=== PATIENT | female | born 1955 | race Caucasian/White ===

== ENCOUNTER 2025-05-11 13:29 | Outpatient (AMB) | payer OTHER, SELFPAY ==
--- NOTE | 2025-05-11 13:30 | A.OFFVIS_ITS ---
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 Accompanied by: Self / Same As Patient Allergies erythromycin Allergy (Unknown, Uncoded 05/11/25 11:25) Rash Medication List - Last Reconciled 05/11/25 by Tamika Rashid MD albuterol sulfate 2.5 mg inhalation Q6H albuterol sulfate 90 mcg/actuation (Ventolin HFA) 2 puffs inhalation QID alprazolam 0.25 mg PO BEDTIME PRN ammonium lactate 12% 1 appl topical DAILY budesonide-formoterol 160-4.5 mcg/actuation (Symbicort) 2 puffs inhalation BID bupropion HCl XL (Wellbutrin XL) 150 mg PO QAM ciclopirox 1% 10 mL topical 2XW escitalopram oxalate (Lexapro) 20 mg PO DAILY fluticasone propionate 50 mcg/actuation 1 spray intranasal BID magnesium aspart,citrate,oxide (Triple Magnesium Complex) mg PO metoprolol succinate ER (Toprol XL) 25 mg PO DAILY montelukast (Singulair) 10 mg PO BEDTIME multivitamin 1 tab PO DAILY naproxen (Naprosyn) 500 mg PO BID omega-3 fatty acids 1,000 mg PO DAILY rosuvastatin (Crestor) 10 mg PO DAILY sumatriptan succinate take 1 tab at onset of headache; if no relief may repeat 1 tab after at least 2 hrs; max = 4 tabs/24 hr PO turmeric mg PO HPI Comments Details: 69y/o left handed female comes for evaluation of tremors. She reports left hand tremors for past 1 year, mostly with action.she compensates with using her right hand . she has trouble eating sometimes . she denies change in voice . No drooling No difficulty dressing or bath. she has mild balance issues .Memory- mild word recall issues Mood- mild anxious Bowel movements are regular Bladder- mild increase in frequency she denies nay family h/o tremors or parkinsons Denies any exposure to neuroleptics she also reports intermittent numbness in her left UE starting form neck. PT helped. she has h/o migraine - was seen by Dr. Avila , Dr. Galvez. [facility] Medical History (Updated 05/11/25 @ 14:21 by Tamika Rashid MD) Numbness Hypersomnia Snoring Cervicalgia Coarse tremors Stress incontinence Primary osteoarthritis of left knee Polycythemia Paroxysmal supraventricular tachycardia Mild intermittent asthma in adult without complication Lichen sclerosus Left hip pain Acute lateral meniscus tear of left knee Chronic rhinitis Screening for endocrine, metabolic and immunity disorder Antibody response examination Elevated hematocrit DDD (degenerative disc disease), cervical Tremor of left hand Prediabetes Mixed hyperlipidemia Anxiety and depression Social History Patient Tobacco Use Status: Never used Tobacco Physical Exam Vital Signs: Last Vital Signs Pulse 69 05/11/25 13:33 BP 132/76 05/11/25 13:33 Pulse Ox 96 05/11/25 13:33 Oxygen Delivery Method Room Air 05/11/25 13:33 BMI result Body Mass Index 34.8 Const General: cooperative, healthy appearing, comfortable and no acute distress Nutritional Appearance: obese Orientation/consciousness: patient oriented x3 Eyes Pupils: Equal, round and reactive pupils present Neuro Other: Mild neck stiffness Left hand mild action tremors - intremittent No cogwheel rigidity FFM and foot taps normal No bradykinesias No cog wheel rigidity Gait - normal stride , normal arm swings General: patient oriented x3, gait normal, tone normal, moves all extremities and no focal motor deficits Cranial nerves: Yes Facial sensation intact/muscles of mastication intact, Yes Equal, round and reactive pupils present, Yes Bilaterally intact EOM present, Y es Nystagmus not present, Yes Normal facial strength present, Yes Midline tongue present and Yes Symmetric palate elevation present Cognition (Neuro): normal cognition Gait exam (Neuro): Normal gait present Motor exam (neuro): 5/5 motor strength present throughout and Normal motor muscle tone present throughout Deep tendon reflexes (DTR's): Right triceps reflex intensity grade: 2+, Left triceps reflex intensity grade: 2+, Rt Biceps (C5, C6): 2+, Left biceps reflex intensity grade: 2+, Right brachioradialis reflex intensity grade: 2+, Left brachioradialis reflex intensity grade: 2+, Right patellar reflex intensity grade: 2+ and Left patellar reflex intensity grade: 2+ Coordination: [id number] test normal Assessment & Plan Assessment & Plan (1) Coarse tremors: Comment: jeremy related to her cervical radiculopathy Code(s): G25.2 - Other specified forms of tremor Category: Medical (2) Cervicalgia: Code(s): M54.2 - Cervicalgia Category: Medical (3) Snoring: Code(s): R06.83 - Snoring Category: Medical (4) Hypersomnia: Code(s): G47.10 - Hypersomnia, unspecified Category: Medical (5) Numbness: Comment: left hand Code(s): R20.0 - Anesthesia of skin Category: Medical Plan No evidence of Parkinsons disease on todays eval Sleep study to r/o sleep apnea EMG Left UE for CTS ? Cervical radiculopathy Orders: Orders NE nerve conduction velocity Today R20.0 - Anesthesia of skin NE electromyogram (EMG) Today R20.0 - Anesthesia of skin RT home sleep study Today G47.10 - Hypersomnia, unspecified, R06.83 - Snoring Coding Level of Care Code New Pt Level 4 (62613) Diagnoses Coarse tremors G25.2 Cervicalgia M54.2 Snoring R06.83 Hypersomnia G47.10 Numbness R20.0
[2025-05-11 13:33] VITALS: BP 132/76; PULSE 69; O2SAT 96; BMI 34.8
--- OUTSIDE RECORDS SUMMARY | 2025-05-11 14:20 | XMS_ITS ---
Author Name [facility] Organization Unknown Care Team Organization Name Specialty Phone Email Start Date End Da te [facility] Meera Olivo Primary Care 09/05/202304/24 [facility] Obed Xiong Primary Care 05/31/202305/12 [facility] Izabela Mariscal Primary Care 08/01/2022 05/12/2024
--- OUTSIDE RECORDS SUMMARY | 2025-05-11 14:20 | XMS_ITS | Clinical Summary ---
Author Organization [facility] Address [address] [place] [address] Care Team Providers Care Pan Pusher Name Role Phone Unavailable Primary Care Provider Unavailabl e Allergies Active Allergy Reactions Criticality Noted Date Comments Erythromycin Hives 10/06/2022 Medications Albuterol Sulfate, sensor, (ProAir Digihaler) 108 (90 Base) MCG/ACT aerosol powder Inhale 2 puffs every 4 (four) hours. Active ALPRAZolam 1 MG/ML concentration Take by mouth. A ctive calcium carbonate (Os-Homero) 1250 (500 Ca) MG tablet Active escitalopram (Lexapro) 10 MG tablet Take 1 tablet by mouth at bed time. Active magnesium gluconate 550 MG tablet Active Multiple Vitamins-Minerals (Multivitamin) liquid Active naproxen (Naprosyn) 125 MG/5ML suspension Take by mouth. Active SUMAtriptan (Imitrex) 5 MG/ACT nasal spray Administer into affected nostril(s). Active Turmeric 400 MG capsule Active Ventolin HFA 108 (90 Base) MCG/ACT inhaler INHALE 2 PUFFS BY MOUTH EVERY 4 HOURS NEEDED FOR WHEEZING OR SHORTNESS OF BREATH FOR 30 DAYS 3 Active ALPRAZolam (Xanax) 0.25 MG tablet Take 0.25 mg by mouth if needed each day. 3 Active budesonide-formot fausto (Symbicort) 160-4.5 MCG/ACT inhaler 4 Active fluticasone (Flonase) 50 MCG/ACT nasal spray INHALE 2 SPRAYS BY NASAL ROUTE DAILY FOR 30 DAYS 3 Active metoprolol succinate XL (Toprol-XL) 25 MG 24 hr tablet Take 25 mg by mouth in the morning. 3 Active montelukast (Singulair) 10 MG tablet Take 10 mg by mouth at bedtime. 3 Active buPROPion XL (Wellbutrin XL) 150 MG 24 hr tablet Take 150 mg by mouth in the morning. 4 Active rosuvastatin (Crestor) 10 MG tablet Take 10 mg by mouth Once per day. 5 Active Social History Tobacco Use Types Packs/Day Years Used Date Smoking Tobacco: Never Passive Smoke Exposure: Never Smokeless Tobacco: Never Tobacco Cessation:Counseling Given: Not Answered Alcohol Use Standard Drinks/Week Comments Yes 5 (1 standard drink = 0.6 oz pur e alcohol) Comments Unknown Sex and Gender Information Value Date Recorded Sex Assigned at Female 07/24/2022 10:37 AM EDT Legal Sex Female 10:37 AM EDT Gender Identity Female 07/24/2022 10:37 AM EDT Sexual Orientation Straight 07/24/2022 10 :37 AM EDT Last Filed Vital Signs Vital Sign Reading Time Taken Comments Blood Pressure 108/62 10/27/2024 2:05 PM EST Pulse 60 10/27/2024 2:05 PM EST Temperature - - Respiratory Rate - - Oxygen Saturation - - Inhaled Oxygen Concentration - - Weight - - Height - - Body Mass Index - - Plan of Treatment Health Maintenance Due Date Last Done Comments CT Colonography 1956 Colonoscopy 1956 Colorectal Cancer Screening 1956 Depression Screening 1956 FIT DNA/Cologuard 1956 FIT 1956 FOBT 1956 SDOH Screening 1956 Sigmoidoscopy 1956 Alcohol/Substance Use Screening 1968 Hepatitis C Screening 1974 Dental Oral Exam 10/26/2024 04/24/2024, 09/26/2023 COVID-19 Vaccine ( season) 2025 07/21/2024, 07/12/2023, 07/05/2022, Additional history exists Dental X-Ray: Bitewings 04/25/2025 04/24/2024, 10/06 Dental Prophylaxis 04/27/2025 10/27/2024, 0 04/24/2024, 09/26/2023, Additional history exists Influenza Vaccine (#1) 2025 , 07/23/2023, 07/22/2023, Additional history exists Tobacco Screening 10/27/2025 10/27/2024 Mammogram 12/25/2026 12/25/2024, 12/25/2024 Dental X-Ray: Full Mouth 04/25/2027 04/24/2024 DTaP/Tdap/Td Vaccines (3 - Td or Tdap) 09/04/2034 09/04/2024, 05/20/2015 Zoster Vaccines Completed 08/13/2020, 07/25, 10/08/2019 Pneumococcal Vaccine: 50+ Years Completed 08/29/2022 RSV Patients and Patients Aged 60 years or older Completed 08/29/2023 HIB Vaccines Aged Out No longer eligi ble based on patient's age to complete this topic HPV Vaccines Aged Out No longer eligi ble based on patient's age to complete this topic Hepatitis A Vaccines Aged Out No long er eligible based on patient's age to complete this topic Hepatitis B Vaccines Aged Out No long er eligible based on patient's age to complete this topic IPV Vaccines Aged Out No longer eligi ble based on patient's age to complete this topic Meningococcal B Vaccine Aged Out No l onger eligible based on patient's age to complete this topic Meningococcal Vaccine Aged Out No oscar arin eligible based on patient's age to complete this topic RSV under 20 months Aged Out No longe r eligible based on patient's age to complete this topic Rotavirus Vaccines Aged Out No longer eligible based on patient's age to complete this topic Procedures Procedure Name Priority Date/Time Associated Diagnosis Comments Full PROPHYLAXIS - ADULT Routine 025 2:00 PM EST INTRAORAL - COMPLETE SERIES OF RADIOGRAPHIC IMAGES Routine 04/24/2024 3:00 PM EDT PERIODIC ORAL EVALUATION - ESTABLISHED PATIENT Routine 04/24/2024 3:00 PM EDT from Last 3 Months or Most Recently Relevant to Health Maintenance Insurance [place] (MEDICAID) DENTAL [facility] * Guarantor: Leonor Chua Account Type Relation to Patient Date of Phone Billing Address Personal/Family Self [place], [place] * Guarantor: Leonor Chua Account Type Relation to Patient Date of Phone Billing Address Personal/Family Self [facility] [place] * Guarantor: Leonor Chua Account Type Relation to Patient Date of Phone Billing Address Personal/Family Self [place], [place] * Guarantor: Leonor Chua Account Type Relation to Patient Date of Phone Billing Address Personal/Family Self [place]
--- OUTSIDE RECORDS SUMMARY | 2025-05-11 14:20 | XMS_ITS | Clinical Summary ---
Author Organization [address] Address [address] [place] [address] Phone Care Team Providers Care Program Eligibility Specialist Name Role Phone Shubham Chang MD Primary Care Pr ovider Allergies Active Allergy Reactions Criticality Noted Date Comments Erythromycin 11/16/2015 Other Reaction(s): Rash/Dermatitis Medications multivitamin with minerals (MULTIPLE VITAMIN-MINERALS ORAL) Take 1 Tab by mouth daily. Active OMEGA-3 FATTY ACIDS-FISH OIL ORAL Take by mouth. Active TURMERIC ORAL Take by mouth. A ctive albuterol 2.5 mg /3 mL (0.083 %) nebulizer solution Take 1 Vial by nebulization every 4 hours as needed for Wheezing for up to 30 days. 022 Active ALPRAZolam (XANAX) 0.25 mg tablet Take 1 Tablet by mouth daily as needed for Anxiety. 023 Active ammonium lactate (AMLACTIN) 12 % cream Apply after bath qd 021 Active ciclopirox 1 % shampoo Use twice a week as needed 023 Active magnesium aspart,citrate,oxid e (Triple Magnesium Complex) 400 mg magnesium capsule Take by mouth. Active SUMAtriptan (IMITREX) 50 mg tablet Take once with headache. May repeat dose once after 2 hours, if needed. Do not exceed 100mg in 24 hours. 020 Active budesonide-formoter oL (SYMBICORT) 160-4.5 mcg/actuation inhaler INHALE 2 PUFFS INTO THE LUNGS EVERY 12 HRS. RINSE MOUTH MOUTH WITH WATER AND SPIT AFTER USE 10.2 each 11 024 Active buPROPion XL (WELLBUTRIN XL) 150 mg 24 hr tabletIndications:S easonal affective disorder ([facility] V24) Take 1 tablet (150 mg total) by mouth 1 (one) time each day in the morning. Do not crush, chew, or split. 90 each 1 025 2024 Active tiotropium (Spiriva Respimat) 2.5 mcg/actuation inhalation spray Inhale 2 puffs by mouth 1 (one) time each day. 1 each 12 025 2025 Active metoprolol succinate (TOPROL-XL) 25 mg 24 hr tabletIndications:P aroxysmal supraventricular tachycardia ([facility] V24) TAKE 1 TABLET BY MOUTH 1 TIME EACH DAY. DO NOT CRUSH OR CHEW. 90 tablet 1 025 Active naproxen (NAPROSYN) 500 mg tablet TAKE 1 TABLET BY MOUTH 2 TIMES DAILY WITH FOOD NEEDED FOR PAIN 180 tablet 1 025 Active albuterol HFA (PROAIR HFA ; PROVENTIL HFA ; VENTOLIN HFA) 90 mcg/actuation inhaler INHALE 2 PUFFS BY MOUTH EVERY 4 HOURS NEEDED FOR WHEEZING OR SHORTNESS OF BREATH FOR 30 DAYS 18 each 2 025 Active fluticasone propionate (FLONASE) 50 mcg/actuation nasal sprayIndications:Ch ronic rhinitis SHAKE GENTLY-USE 1 SPRAY INTO EACH NOSTRIL TWICE A DAY PRIME BEFORE 1ST USE & CLEAN TIP/REPLACE CAP AFTER 48 mL 025 Active escitalopram (LEXAPRO) 20 mg tablet TAKE 1 TABLET BY MOUTH EVERY DAY 90 tablet 1 025 Active montelukast (SINGULAIR) 10 mg tabletIndications:C hronic rhinitis,Cough, unspecified TAKE 1 TABLET BY MOUTH EVERYDAY AT BEDTIME 90 tablet 3 025 Active rosuvastatin (CRESTOR) 10 mg tabletIndications:M ixed hyperlipidemia TAKE 1 TABLET BY MOUTH 1 TIME EACH DAY. 90 tablet 1 025 Active montelukast (SINGULAIR) 10 mg tablet TAKE 1 TABLET BY MOUTH EVERYDAY AT BEDTIME 024 2024 Discontinued rosuvastatin (CRESTOR) 10 mg tabletIndications:M ixed hyperlipidemia Take 1 tablet (10 mg total) by mouth 1 (one) time each day. 90 each 1 025 2024 Discontinued escitalopram (LEXAPRO) 20 mg tablet TAKE 1 TABLET BY MOUTH EVERY DAY 90 tablet 1 025 2024 Discontinued Active Problems Problem Noted Date Diagnosed Date Polycythemia 10/09/2024 Chronic rhinitis 09/12/2024 Assessment & Plan (09/12/2024 11:56 AM EST): Resume flonase BID Continue saline nasal spray See HPI Orders: fluticasone propionate (FLONASE) 50 mcg/actuation nasal spray; Administer 1 spray into each nostril 2 (two) times a day. Shake gently. Before first use, prime pump. After use, clean tip and replace cap. Anxiety 08/08/2024 Elevated hematocrit 08/08/2024 Overview (08/08/2024): Normal workup (Dr. Farr; December 2020) Assessment & Plan (09/12/2024 11:56 AM EST): And elevated HB. Chronic . Will update CBC May refer to hematology Orders: CBC and differential; Future Prediabetes 08/08/2024 Assessment & Plan (09/12/2024 11:56 AM EST): Overdue for A1c which is ordered Orders: Hemoglobin A1c; Future Acute lateral meniscus tear of left knee 024 Primary osteoarthritis of left knee 11/28/2023 DDD (degenerative disc disease), cervical 2022 Lichen sclerosus 05/03/2023 Overview (08/08/2024): [facility] incontinence 05/03/2023 Overview (08/08/2024): [facility] Left hip pain 12/10/2018 Hyperlipidemia 01/08/2018 Overview (08/08/2024): Last Assessment & Plan: Patient's LDL is somewhat elevated. Diet and exercise will help. If she develops full diabetes, goal LDL would be at least less than 100 but closer to 70 if possible. For now, continue to follow Assessment & Plan (09/12/2024 11:56 AM EST): Continue omega-3 fish oil supplement daily; will calculate updated ASCVD risk to determine need for statin Orders: Lipid panel with reflex to direct LDL; Future Comprehensive metabolic panel; Future Mild intermittent asthma without complication Assessment & Plan (09/12/2024 11:56 AM EST): Continue pulmonology follow-up and Singulair 10 mg nightly, Symbicort twice daily and albuterol as needed. DDD (degenerative disc disease), lumbar 07/25/20 17 Paroxysmal supraventricular tachycardia ([facility] V24) 07/24/2017 Overview (08/08/2024): Last Assessment & Plan: Patient has had some palpitations of late, however, in the setting of a recent illness requiring increased use of her nebulizer and albuterol, increased risk in general, and a facial rash that required prednisone burst. Offered to increase her metoprolol as she has not had any wheezing of late versus versus obtaining 30- day monitor versus continue her current dose with conservative therapy which is increasing her exercise and following her symptoms. She elects conservative therapy on her current dose of metoprolol and will notify me of any changes in her symptoms. She is encouraged to increase her exercise as she is able and follow her symptoms along. She understands and agrees. She does have a low-grade murmur and we will update her echocardiogram but historically has been normal. Assessment & Plan (10/24/2024 2:23 PM EST): Orders: Ambulatory referral to Cardiology ECG 12 lead Assessment & Plan (09/12/2024 11:56 AM EST): With minimal palpitations. Continue metoprolol. Due for cardiology follow up and is referred Orders: CBC and differential; Future Ambulatory referral to Cardiology; Future metoprolol succinate (TOPROL-XL) 25 mg 24 hr tablet; Take 1 tablet (25 mg total) by mouth 1 (one) time each day. Do not crush or chew. Depression 07/21/2016 Resolved Problems Problem Noted Date Diagnosed Date Resolved Date Cough 09/26/2017 09/12/2024 Encounters Date Type Department Care Team Description 04/08/2025 2:30 PM EDT Office Visit Pulmonolgy [facility] 175 [facility] [address] [place] [phone] Melissa Hector MD Moderate persistent asthma, unspecified whether complicated (Primary Dx); Cough, unspecified type 02/12/2025 2:30 PM EDT Treatment [facility] 175 [facility] [address] [place] [address] Ector Alarcon, LEAD ESTHETICIAN DDD (degenerative disc disease), cervical (Primary Dx) 02/10/2025 2:00 PM EDT Treatment [facility] [address] [facility] [address] [place] [phone] Leighton Tejada, VALERIA DDD (degenerative disc disease), cervical (Primary Dx) from Last 3 Months Immunizations Name Administration Dates Next Due COVID-19 (Pfizer/Comirnaty) 12yo and older 07/21/2024,07/12/2023 Influenza Quadravalent, 0.5m l (Fluad) 65yo and older 07/22/2023 Influenza Quadravalent, 0.5m l (Fluzone High-dose) 65yo and older 07/25/2022 Influenza Quadravalent, MDCK , 0.5ml, preservative free (Flucelvax) 6mo and older 05/23/2019 Influenza Quadrivalent, 0.5m l, preservative free (Fluarix; FluLaval; Fluzone) ages 6mo and older (Afluria) 3yo and older 07/16/2021,08/13/2020 Influenza Quadrivalent, with preservative (Fluzone; Afluria) 6mo and older 07/09/2018 Influenza trivalent, 0.5mL ( Fluad) 65yo and older 07/25/2022 Influenza trivalent, 0.5mL ( Fluzone High-dose) 65yo and older 09/04/2024 Influenza trivalent, 0.5mL, preservative free (Fluarix; FluLaval; Fluzone) ages 6mo and older (Afluria) 3 years and older 08/13/2020,05/23/2019,07/09/2018,2016,07/13/2016,07/30/2015,06/23/2014 Influenza trivalent, with preservative (Fluzone; Afluria) 6mo and older 06/23/2014,08/03/2010 Influenza, Unspecified 07/23/2023 Moderna SARS-CoV-2 COVID-19, mRNA, LNP-S, preservative free 07/21/2024 Pfizer (ages 12 & older) Biv alent, COVID-19 07/05/2022 Pfizer (ages 12 & older) FERNANDO S-CoV-2 COVID-19, mRNA, LNP-S, chasity-sucrose, preservative free 01/23/2022 Pfizer SARS-CoV-2 COVID-19, mRNA, LNP-S, preservative free 07/05/2022,01/23/2022,09/20/2021,2020,12/28/2020 Pneumococcal conjugate 20 va lent (Prevnar 20, PCV 20) 2mo and older 08/29/2022 RSV, bivalent, protein subun it RSVpreF, 0.5mL, Preservative Free (Arexvy) 60yo and older 08/29/2023 Tdap Tetanus diptheria acell ular pertussis (Boostrix; Adacel) 7yo and older 09/04/2024,05/20/2015 Zoster recombinant (Shingrix ) 19yo and older 08/13/2020,08/11/2020,10/08/2019 Surgical History Surgery Date Site/Laterality Comments HIP ARTHROPLASTY 2009 Right PROCEDURE: HISTORICAL HIP REPLACEMENT; COMMENT: Dr. Arnold CARPAL TUNNEL RELEASE Bilateral PROCEDURE: HISTORICAL CARPAL TUNNEL REL; COMMENT: R 1999, L 2001 LUMBAR LAMINECTOMY 1981 PROCEDURE: HISTORICAL LUMB LAMINECTOMY; COMMENT: L5-S1 BREAST BIOPSY Left PROCEDURE: BX BREAST; PERC NEEDLE CORE W/IMAG GUID; COMMENT: patient cannot remember possibly 2010 TONSILLECTOMY ADENOIDECTOMY, BILATERAL MYRINGOTOMY AND TUBES PROCEDURE: MD TONSILLECTOMY & ADENOIDECTOMY <AGE 13 Medical History Medical History Date Comments Mild intermittent asthma wit hout complication 09/26/2017 DX:Mild intermittent asthma without complication Anxiety DX:Anxiety Cough 09/26/2017 DX:Cough DDD (degenerative disc disea se), lumbar 07/25/2017 DX:DDD (degenerative disc di sease), lumbar Depression 07/21/2016 DX:Depression History of hip replacement 07/24/2017 DX:Hi story of hip replacement Hyperlipidemia 01/08/2018 DX:Hyperlipidemi a Paroxysmal supraventricular tachycardia (CMS/HCC V24) 07/24/2017 DX:Paroxysmal supraventricul ar tachycardia (HCC) Prediabetes DX:Prediabetes Elevated hematocrit DX:Elevated hematocrit Social History Tobacco Use Types Packs/Day Years Used Date Smoking Tobacco: Never Smokeless Tobacco: Never Tobacco Cessation:Counseling Given: Not Answered Alcohol Use Standard Drinks/Week Comments Yes 2 (1 standard drink = 0.6 oz pur e alcohol) Housing Instability Answer Date Recorde d Are you worried that in the next 2 months you may not have stable housing? No 12/10/2024 Food Access & Nutrition Answer Date Rec orded Do you have access to a vari ety of food including fruits and vegetables? Yes 12/10/2024 Access to Healthcare Answer Date Record ed Within the last 3 months, ho w many times did you visit the emergency department for your medical care? 0 12/10/2024 Health Literacy Answer Date Recorded How often do you need to hav e someone help you when you read instructions, pamphlets, or other written material from your doctor or pharmacy? Never 12/10/2024 Caregiver: How often do you need to have someone help you when you read instructions, pamphlets, or other written material from your doctor or pharmacy? Not on file 12/10/2024 Financial Risk Answer Date Recorded How hard is it for you to pa y for the very basics like food, housing, medical care, and air conditioning / heating? Not very hard 12/10/2024 Transportation Answer Date Recorded Has the lack of transportati on kept you from meetings, work, or from getting things needed for daily living? No Has the lack of transportati on kept you from medical appointments or from getting medications? No 12/10/2024 Social Isolation Answer Date Recorded How often do you feel lonely or isolated from those around you? Sometimes 12/10/2024 Food Risk Answer Date Recorded Within the past 12 months we worried whether our food would run out before we got money to buy more. Never true 12/10/2024 Within the past 12 months th e food we bought just didn't last and we didn't have money to get more. Never true 12/10/2024 Dependent Care Answer Date Recorded Do you need help finding or paying for care for your loved ones. For example, anesthesiologist and critical care or elderly care for an older adult? No 12/10/2024 Education Answer Date Recorded Do you think completing more education or training, like finishing a GED, going to college, or learning a trade, would be helpful for you? N/A 12/10/2024 Employment and Income Answer Date Recor ded During the last four weeks, have you been actively looking for work? No 12/10/2024 Living Situation Answer Date Recorded What is your living situation? 0 12/10/2024 Comments No Sex and Gender Information Value Date Recorded Sex Assigned at Not on file Legal Sex Female 7:47 PM EST Gender Identity Not on file Sexual Orientation Not on file Obstetrics History Para Term AB IAB SAB Ectopic Multiple Livin g Live Births 1 1 1 1 Date Outcome GA Total Labor Labor/2nd/3rd Weight Sex Type Anes PTL Cora A1 A5 Name Clin Term Last Filed Vital Signs Vital Sign Reading Time Taken Comments Blood Pressure 118/58 04/08/2025 2:45 PM EDT Pulse 71 04/08/2025 2:45 PM EDT Temperature 36.1 C (97 F) 04/08/2025 2:45 PM EDT Respiratory Rate 20 04/08/2025 2:45 PM EDT Oxygen Saturation 92% 04/08/2025 2:45 PM EDT Inhaled Oxygen Concentration - - Weight 81.2 kg (179 lb) 04/08/2025 2:45 PM EDT Height 152.4 cm (5') 04/08/2025 2:45 PM EDT Body Mass Index 34.96 04/08/2025 2:45 PM EDT Plan of Treatment Upcoming Encounters Date Type Department Care Team (Late st Contact Info) Description 05/20/2025 4:00 PM EDT Evaluation [facility] 175 [facility] [address] [place] [phone] Daniel Michael, PT 06/15/2025 12:45 PM EDT Office Visit Adult Medicine [facility] [address] [place] [phone] Shubham Chang MD [address] [place] [address] 10/09/2025 2:30 PM EST Office Visit Pul[facility]olgy - [place] 175 [facility] [address] [place] [phone] Melissa Hector MD [address] [address] 12/30/2025 1:00 PM EDT Appointment Radiology Department - [address] [phone] Health Maintenance Due Date Last Done Comments COVID-19 Vaccine ( season) 2024 07/21/2024, 07/21/2024, 07/12/2023, Additional history exists Influenza Vaccine (#1) 2025 , 07/23/2023, 07/22/2023, Additional history exists Falls Risk Assessment 09/12/2025 09/12/2024 Medicare Annual Wellness Visit 09/12/2025 09/12/2024 Social Influencers of Health Screening 12/10/2025 12/10/2024 Breast Cancer Screening 12/25/2026 12/26/19, 12/13/2023, 12/11/2022, Additional history exists Cholesterol Screening (Lipid Panel) 10/06/2029 10/06/2024, 03/30/2023 Colorectal Cancer Screening: Colonoscopy 11/11/2029 11/11/2019 Osteoporosis Screening (Bone Density Screening) 09/06/2033 09/06/2023 DTaP,Tdap,and Td Vaccines (3 - Td or Tdap) 09/04/2034 09/04/2024, 05/20/2015 Zoster Vaccines Completed 08/13/2020, 07/25, 10/08/2019 Hepatitis C Screening Completed 09/14/2020 Pneumococcal Vaccine: 50+ Years Completed 08/29/2022 RSV Immunization Adult Patients Completed 08/29/2023 Depression Screening Completed 12/10/2024, 11/28/19 24 HIB Vaccines Aged Out No longer eligi [...] on patient's age to complete this topic MMR Vaccines Aged Out No longer eligi ble based on patient's age to complete this topic Meningococcal ACWY Vaccine Aged Out N o longer eligible based on patient's age to complete this topic Meningococcal B Vaccine Aged Out No l onger eligible based on patient's age to complete this topic RSV Immunization Patients Under 20 months Aged Out No longer eligible based on patient's age to complete this topic Varicella Vaccines Aged Out No longer eligible based on patient's age to complete this topic Goals Goal Patient Goal Type Associated Problems Recent Progress Patient-Stated? Author less pain General Yes Jed Galarza, PT PT STG x 8 visits from [facility] on 01/12/2025 General Yes Jed Galarza, PT Note: [x] = completed goal [] = NOT completed goal Pt will report a 2/10 average pain level decrase, Pt will improve C rotation to 60 deg to right in order to aid in looking over shoulder, Pt will improve deep neck flexor strength to 15 seconds, Pt will improve shoulder ER strength to 4/5 PT LTG x 8 visits from [facility] on 01/12/2025 General Yes Jed Galarza, PT Note: [x] = completed goal [] = NOT completed goal [] Pt will be able to look over shoulder without requiring trunk rotation when driving []Pt will be able to use mouse x 5 min without having to stop due to pain []Pt will have no difficulty with laundry as it relates to neck pain Procedures Procedure Name Priority Date/Time Associated Diagnosis Comments MG MAMMO DIGITAL SCREENING W DONNIE BILAT Routine 12/25/2024 1:11 PM EDT Encounter for screening mammogram for breast cancer LIPID PANEL WITH REFLEX TO DIRECT LDL Routine 10/06/2024 11:05 AM EST Mixed hyperlipidemia HM DEPRESSION SCREENING Routine 11/28/2023 DXA BONE DENSITY STUDY 1+ SITS AXIAL SKEL Routine 09/06/2023 3:20 PM EST Encounter for screening for osteoporosis HEPATITIS C SCREENING Routine 09/14/2020 COLONOSCOPY Routine 11/11/2019 from Last 3 Months or Most Recently Relevant to Health Maintenance Results * MG Mammo Digital Screening w Donnie bilat (12/25/2024 1:11 PM EDT) Anatomical Region Laterality Modality Breast Bilateral Mammography 12/26/2024 10:3 4 AM EDT Impressions 12/26/2024 10:48 AM EDT 1. No mammographic evidence of malignancy 2. Heterogeneous breast parenchyma BI-RADS CATEGORY: 2 - BENIGN RECOMMENDATION: Screening bilateral mammogram is recommended in 1 year. Mammo Location: [facility], [address] [place] [address], [id number], . -------- FINAL REPORT -------- Dictated By: Ignacia Man Dictated Date: 12/26/2024 10:34 ET Assigned Physician: Ignacia Man Reviewed and Electronically Signed By: Ignacia Man Signed Date: 12/26/2024 10:48 ET Workstation ID: [id number] Transcribed By: Self Edit Transcribed Date: 12/26/2024 10:34 ET Narrative 12/26/2024 10:48 AM EDT A BILATERAL DIGITAL 3D SCREENING MAMMOGRAPHY HISTORY: Routine screening. COMPARISON: Multiple priors dating back to 12/01/2020 Technique: Bilateral full field digital mammography (3D) was performed using standard CC and MLO projections , left breast exaggerated CC CAD was used to evaluate this mammogram. FINDINGS: Right: No suspicious masses, groups of microcalcification or areas of architectural distortion identified. Stable typically benign parenchymal asymmetries. Left: No suspicious masses, groups of microcalcification or areas of architectural distortion identified. Stable typically benign parenchymal asymmetries. Upper inner middle depth biopsy marker. BREAST DENSITY: C - The breasts are heterogeneously dense which may obscure small masses. Procedure Note Ignacia Man MD - 12/26/2024 A BILATERAL DIGITAL 3D SCREENING MAMMOGRAPHY HISTORY: Routine screening. COMPARISON: Multiple priors dating back to 12/01/2020 Technique: Bilateral full field digital mammography (3D) was performedusing standard CC and MLO projections , left breast exaggerated CC CAD was used to evaluate this mammogram. FINDINGS: Right: No suspicious masses, groups of microcalcification or areas ofarchitectural distortion identified. Stable typically benign parenchymalasymmetries. Left: No suspicious masses, groups of microcalcification or areas ofarchitectural distortion identified. Stable typically benign parenchymalasymmetries. Upper inner middle depth biopsy marker. BREAST DENSITY: C - The breasts are heterogeneously dense which mayobscure small masses. IMPRESSION: 1. No mammographic evidence of malignancy 2. Heterogeneous breast parenchyma BI-RADS CATEGORY: 2 - BENIGN RECOMMENDATION: Screening bilateral mammogram is recommended in 1 year. Mammo Location: [facility], [address] [place] [address], [id number], . -------- FINAL REPORT -------- Dictated By: Ignacia Man Dictated Date: 12/26/2024 10:34 ET Assigned Physician: Ignacia Man Reviewed and Electronically Signed By: Ignacia Man Signed Date: 12/26/2024 10:48 ET Workstation ID: [id number] Transcribed By: Self Edit Transcribed Date: 12/26/2024 10:34 ET us Shubham Chang MD IMG BI PROCEDURE S Final Result * (ABNORMAL) Lipid panel with reflex to direct LDL (10/06/2024 11:05 AM EST) Cholesterol 257(H) 0 - 200 mg/dL LAB CHEMISTRY METHOD 10/06/2024 5:25 PM EST [facility] Triglycerides 131 0 - 150 mg/dL LAB CHEMISTRY METHOD 10/06/2024 5:25 PM EST [facility] HDL 56 >=40 mg/dL LAB CHEMISTRY METHOD 10/06/2024 5:25 PM EST [facility] LDL Calculated 175(H) 0 - 100 mg/dL LAB CHEMISTRY METHOD 10/06/2024 5:25 PM EST [facility] VLDL Cholesterol Homero 26.2 mg/dL LAB CHEMISTRY METHOD 10/06/2024 5:25 PM EST [facility] Non HDL Chol. (LDL+VLDL) 201(H) <145 mg/dL LAB CHEMISTRY METHOD 10/06/2024 5:25 PM EST [facility] Chol/HDL Ratio 4.6(H) 0.0 - 4.4 LAB CHEMISTRY METHOD 10/06/2024 5:25 PM EST [facility] Blood Venous blood specimen / Unknown Venipuncture / Unknown 10/06/2024 11:05 AM EST 10/06/2024 11:05 AM EST us Shubham Chang MD LAB BLOOD ORDERA BLES Final Result [facility] [address] [place] [address], [place] [phone] * Depression Screening (11/28/2023) Pathologist [facility] Depression Screening Abstracted us Historical Provider HEALTH MAINTENANCE Final Result * DXA BONE DENSITY STUDY 1+ SITS AXIAL SKEL (09/06/2023 3:20 PM EST) Anatomical Region Laterality Modality Bone Densitometr y 03/28/2023 10:0 9 AM EDT Narrative 09/07/2023 5:19 PM EST BONE DENSITY Lumbar Spine T-score is 0.0 (SD relative to 20-29 y/o adult) Z-score is +1.9 (SD relative to age matched peers) This is normal by criteria defined by the WHO. Left Wrist T-score is -0.1 Z-score is +1.6 This is normal by criteria defined by the WHO. Impression: Based on the World Health Organization criteria, Femi Bernard should be classified as having normal bone density. [facility] Department of Internal Medicine recommends using National Osteoporosis Foundation (NOF) guidelines in treatment decisions related to osteoporosis. NOF guidelines suggest considering treatment for postmenopausal women and men aged 50 or older presenting with the following: History of hip or vertebral fracture. T-score less than or equal to -2.5 (DXA) at the femoral neck, total hip, or spine, after appropriate evaluation to exclude secondary causes. Low bone mass (T-score between -1.0 and -2.5 at the femoral neck or spine) AND a 10-year probability of a hip fracture greater than or equal to 3% OR a 10-year probability of a major osteoporosis-related fracture greater than or equal to 20% based on the [place]-adapted WHO algorithm Please note that all treatment decisions require clinical judgment and consideration of individual patient factors, including patient preferences, co-morbidities, previous drug use, risk factors not captured in the FRAX model (e.g., frailty, falls, vitamin D deficiency, increased bone turnover, interval significant decline in bone density) and possible under- or over-estimation of fracture risk by FRAX. Procedure Note Stefan Quick MD - 10/30/2023 BONE DENSITY Lumbar Spine T-score is 0.0 (SD relative to 20-29 y/o adult) Z-score is +1.9 (SD relative to age matched peers) This is normal by criteria defined by the WHO. Left Wrist T-score is -0.1 Z-score is +1.6 This is normal by criteria defined by the WHO. Impression: Based on the World Health Organization criteria, Femi Bernard shouldbe classified as having normal bone density. [facility] Department of Internal Medicine recommendsusing National Osteoporosis Foundation (NOF) guidelines in treatmentdecisions related to osteoporosis. NOF guidelines suggest consideringtreatment for postmenopausal women and men aged 50 or older presentingwith the following: History of hip or vertebral fracture. T-score less than or equal to -2.5 (DXA) at the femoral neck, total hip,or spine, after appropriate evaluation to exclude secondary causes. Low bone mass (T-score between -1.0 and -2.5 at the femoral neck or spine)AND a 10-year probability of a hip fracture greater than or equal to 3% ORa 10-year probability of a major osteoporosis-related fracture greaterthan or equal to 20% based on the [place]-adapted WHO algorithm Please note that all treatment decisions require clinical judgment andconsideration of individual patient factors, including patientpreferences, co-morbidities, previous drug use, risk factors not capturedin the FRAX model (e.g., frailty, falls, vitamin D deficiency, increasedbone turnover, interval significant decline in bone density) and possibleunder- or over-estimation of fracture risk by FRAX. Meera SULLIVAN IMG DXA PROCEDURES Final Resu lt * Hepatitis C Screening (09/14/2020) [facility] Hepatitis C Screening Abstracted Historical Provider HEALTH MAINTENANCE Final Result * Colonoscopy (11/11/2019) [facility] Colonoscopy No Interpretation , Abstracted Anatomical Region Laterality Modality Other Historical Provider HEALTH MAINTENANCE Final Result from Last 3 Months or Most Recently Relevant to Health Maintenance Insurance [employer] MEDICARE Advance Directives Documents on File Type Date Recorded Patient Loom Setter Fourdrinier Expl [facility] Care Decision (hx) 09/12/2023 SHRAVAN ORTIZ DIRECTIVE Care Teams Program Eligibility Specialist Relationship Specialty Start Date End Date Shubham Chang MD [address] [place] [id number] PCP - General 04/17/23
--- OUTSIDE RECORDS SUMMARY | 2025-05-11 14:20 | XMS_ITS | Clinical Summary ---
[facility] Organization [facility] Address [address] [place] [address] Care Team Providers Care Press Setter Name Role Phone Clara Meza DO Primary Care P rovider Allergies Active Allergy Reactions Criticality Noted Date Comments Erythromycin 10/11/2020 Medications Medication Sig Dispensed Refills Start Date End Date Status Magnesium 400 MG CAPS Take 400 mg by mouth daily. 0 Active calcium carbonate (Calcium-Carb 600) 600 MG tablet Take 600 mg by mouth daily. 0 Active TURMERIC PO Take by mouth. 0 Active metoprolol succinate (TOPROL-XL) 24 hr tablet 25 mg Take 25 mg by mouth daily. 0 Active albuterol (PROVENTIL HFA;VENTOLIN HFA) 108 (90 Base) MCG/ACT inhaler Inhale 2 puffs into the lungs every 4 (four) hours as needed for wheezing. 0 Active escitalopram (LEXAPRO) tablet 10 mg Take 10 mg by mouth daily. 0 Active naproxen (NAPROSYN) 500 MG tablet Take 500 mg by mouth 2 (two) times a day with meals. 0 Active Multiple Vitamins-Minerals (MULTIVITAMIN ADULT PO) Take by mouth. 0 Active Active Problems Problem Noted Date Diagnosed Date SVT (supraventricular tachycardia) 10/15/2020 Elevated hematocrit 10/15/2020 Anxiety 10/15/2020 Primary osteoarthritis of left hip 10/15/2020 Social History Tobacco Use Types Packs/Day Years Used Date Smoking Tobacco: Never Smokeless Tobacco: Never Alcohol Use Standard Drinks/Week Comments Yes 3 (1 standard drink = 0.6 oz pur e alcohol) 3 mixed drinks per week Education Answer Date Recorded What is the highest level of school you have completed or the highest degree you have received? Associate degree: occupational, technical, or vocational program 10/15/2020 Sex and Gender Information Value Date Recorded Sex Assigned at Not on file Gender Identity Not on file Sexual Orientation Not on file Job Start Date Occupation Industry Not on file Not on file Not on file Last Filed Vital Signs Vital Sign Reading Time Taken Comments Blood Pressure 116/61 10/15/2020 10:35 AM EST Pulse 68 10/15/2020 10:35 AM EST Temperature 36.4 C (97.5 F) 10/15/2020 10:35 AM EST Respiratory Rate - - Oxygen Saturation 96% 10/15/2020 10:35 AM EST Inhaled Oxygen Concentration - - Weight 78 kg (172 lb) 10/15/2020 10:35 AM EST Height 154.9 cm (5' 1 ) 10/15/2020 10:35 AM EST Body Mass Index 32.5 10/15/2020 10:35 AM EST Plan of Treatment Health Maintenance Due Date Last Done Comments Hepatitis C Screening 1956 COVID-19 Vaccine (#1) 05/13/1957 Depression Screening 1968 Preventative Health Evaluation 1974 DTap / Tdap / Td (1 - Tdap) 1975 Colon Cancer Screening (Colonoscopy) 2001 Breast Cancer Screening (Mammogram) 2006 Shingrix-Zoster Vaccine (1 of 2) 2006 Fall Risk Assessment 2021 Osteoporosis Screening (DEXA Scan) 2021 Pneumococcal Vaccine (1 of 1 - PCV) 2021 Influenza Vaccine (#1) 2025 RSV Adult > 60+ Yrs or Pregn ant (1 - 1-dose 75+ series) 2031 Hepatitis B Vaccines Aged Out No long er eligible based on patient's age to complete this topic RSV Ped < 20 months Aged Out No longe r eligible based on patient's age to complete this topic Care Teams Press Setter Relationship Specialty Start Date End Date Clara Meza DO PCP - General Manager Human Capital 09/23/20
--- OUTSIDE RECORDS SUMMARY | 2025-05-11 14:20 | XMS_ITS | Encounter Summary ---
Author Organization [facility] Address [address] [place] [id number] Phone Care Team Providers Care Reverse Engineer Name Role Phone Romario Bhatia MD Primary Care Provider [phone]- [phone] Encounter Details Date Type Department Care Team (Late st Contact Info) Description 07/24/2017 Orders Only VIRTUAL DEPARTMENT Interface Provider, Scanning Social History Tobacco Use Types Packs/Day Years Used Date Smoking Tobacco: Never Assessed Comments Unknown Sex and Gender Information Value Date Recorded Sex Assigned at Not on file Legal Sex Female 3:28 PM EST Gender Identity Not on file Sexual Orientation Not on file documented as of this encounter Plan of Treatment Not on file documented as of this encounter Procedures Procedure Name Priority Date/Time Associated Diagnosis Comments OUTSIDE LAB Routine 07/24/2017 documented in this encounter Results * Outside Lab (07/24/2017) us Historical Provider LAB BLOOD ORDERABLES Danitza l Result documented in this encounter Visit Diagnoses Not on filedocumented in this encounter Care Teams Reverse Engineer Relationship Specialty Start Date End Date Romario Bhatia MD PCP - General 08/15/17 documented as of this encounter Additional Source Comments The information contained in this document represents components of the legal health record. It is not the complete legal health record.[facility]
== END 2025-05-11 14:26 | disposition home or self-care (01) ==
LOC: HO.HSMS 13:29
PROVIDERS: Visit Provider Psychiatry & Neurology Neurology
DX: G25.2 Other specified forms of tremor (principal); M54.2 Cervicalgia; R06.83 Snoring; G47.10 Hypersomnia, unspecified; R20.0 Anesthesia of skin
CPT/HCPCS: 99204

== ENCOUNTER 2025-06-30 15:09 | Outpatient (REF) | payer MEDICARE, SELFPAY ==
--- NOTE | 2025-06-30 15:20 | EMG_ITS ---
Chief complaint: Pain left shoulder Reason for referral: Anesthesia of skin Referred by:Joyce Rashid Procedure done: Right upper extremity NCS/EMG Impression: Left median and ulnar motor studies were performed with F waves and median and ulnar mixed sensory studies were performed and left radial sensory study was performed and needle examination was performed. Left median mixed distal latencies were slightly prolonged with borderline conduction velocity while motor study did not reveal any significant abnormality. A needle examination, polyphasic long duration potentials were noted in left mid cervical paraspinal and fibs and sharp waves in deltoid. Impression: 1. Left mid cervical radiculopathy 2. Mild left median neuropathy across carpal tunnel MTDD
--- OUTSIDE RECORDS SUMMARY | 2025-06-30 18:22 | XMS_ITS | Clinical Summary ---
Author Organization [address] Address [address] [place] [address] Phone Care Team Providers Care Tunnel Heading Supervisor Name Role Phone Shubham Chang MD Primary [...] for Wheezing for up to 30 days. 08/09/20 22 Active ALPRAZolam (XANAX) 0.25 mg tablet Take 1 Tablet by mouth daily as needed for Anxiety. 07/30/20 23 Active ammonium lactate (AMLACTIN) 12 % cream Apply after bath qd 02/09/20 21 Active ciclopirox 1 % shampoo Use twice a week as needed 11/03/19 23 Active magnesium aspart,citrate,oxide (Triple Magnesium Complex) 400 mg magnesium capsule Take by mouth. Active SUMAtriptan (IMITREX) 50 mg tablet Take once with headache. May repeat dose once after 2 hours, if needed. Do not exceed 100mg in 24 hours. 02/03/20 20 Active budesonide-formotero L (SYMBICORT) 160-4.5 mcg/actuation inhaler INHALE 2 PUFFS INTO THE LUNGS EVERY 12 HRS. RINSE MOUTH MOUTH WITH WATER AND SPIT AFTER USE 10.2 each 11 08/15/20 24 Active buPROPion XL (WELLBUTRIN XL) 150 mg 24 hr tabletIndications:Se asonal affective disorder (CMS/HCC V24) Take 1 tablet (150 mg total) by mouth 1 (one) time each day in the morning. Do not crush, chew, or split. 90 each 1 12/19/19 25 Active tiotropium (Spiriva Respimat) 2.5 mcg/actuation inhalation spray Inhale 2 puffs by mouth 1 (one) time each day. 1 each 12 01/08/20 25 026 Active metoprolol succinate (TOPROL-XL) 25 mg 24 hr tabletIndications:Pa roxysmal supraventricular tachycardia (CMS/HCC V24) TAKE 1 TABLET BY MOUTH 1 TIME EACH DAY. DO NOT CRUSH OR CHEW. 90 tablet 1 01/10/20 25 Active naproxen (NAPROSYN) 500 mg tablet TAKE 1 TABLET BY MOUTH 2 TIMES DAILY WITH FOOD NEEDED FOR PAIN 180 tablet 1 01/10/20 25 Active albuterol HFA (PROAIR HFA ; PROVENTIL HFA ; VENTOLIN HFA) 90 mcg/actuation inhaler INHALE 2 PUFFS BY MOUTH EVERY 4 HOURS NEEDED FOR WHEEZING OR SHORTNESS OF BREATH FOR 30 DAYS 18 each 2 03/20/20 25 Active fluticasone propionate (FLONASE) 50 mcg/actuation nasal sprayIndications:Chr onic rhinitis SHAKE GENTLY-USE 1 SPRAY INTO EACH NOSTRIL TWICE A DAY PRIME BEFORE 1ST USE & CLEAN TIP/REPLACE CAP AFTER 48 mL 03/20/20 25 Active escitalopram (LEXAPRO) 20 mg tablet TAKE 1 TABLET BY MOUTH EVERY DAY 90 tablet 1 04/24/20 25 Active montelukast (SINGULAIR) 10 mg tabletIndications:Ch ronic rhinitis,Cough, unspecified TAKE 1 TABLET BY MOUTH EVERYDAY AT BEDTIME 90 tablet 3 04/23/20 25 Active rosuvastatin (CRESTOR) 10 mg tabletIndications:Mi xed hyperlipidemia TAKE 1 TABLET BY MOUTH 1 TIME EACH DAY. 90 tablet 1 04/24/20 25 Active Active Problems Problem Noted Date Diagnosed [...] disease), lumbar 07/25/20 17 Paroxysmal supraventricular tachycardia ([facility] V24) 07/24/2017 Overview (08/08/2024): Last Assessment & [...] Description 04/08/2025 2:30 PM EDT Office Visit Pulmonology - [address] [place] [address] Melissa Hector MD Moderate persistent asthma, unspecified whether complicated (Primary Dx); Cough, unspecified type from Last 3 Months Immunizations Immunization Administration Dates Next Due COVID-19 (Pfizer/Comirnaty) 12yo [...] subun it RSVpreF, 0.5mL, Preservative Free (Arexvy) 50yo and older 08/29/2023 Tdap Tetanus diptheria acell ular pertussis (Boostrix; Adacel) 7yo and older 09/04/2024,05/20/2015 Zoster recombinant (Shingrix ) 19yo and older 08/13/2020,08/11/2020,10/08/2019 Surgical History Surgery Date Site/Laterality Comments HIP ARTHROPLASTY 2009 Right PROCEDURE: HISTORICAL HIP REPLACEMENT; COMMENT: Dr. Arnold CARPAL TUNNEL RELEASE Bilateral PROCEDURE: HISTORICAL CARPAL TUNNEL REL; COMMENT: R 1999, L 2001 LUMBAR LAMINECTOMY 1982 PROCEDURE: HISTORICAL LUMB LAMINECTOMY; COMMENT: L5-S1 BREAST BIOPSY Left PROCEDURE: BX BREAST; PERC NEEDLE CORE W/IMAG GUID; COMMENT: patient cannot remember possibly 2009 TONSILLECTOMY ADENOIDECTOMY, BILATERAL MYRINGOTOMY AND TUBES PROCEDURE: [place] TONSILLECTOMY & ADENOIDECTOMY <AGE 12 Medical History [...] care for your loved ones. For example, children's tutor or elderly care for an older adult? [...] Date Recorded What is your living situation? Unrecognized valu e 12/10/2024 Comments No Sex and Gender Information [...] Care Team (Late st Contact Info) Description 10/09/2025 2:30 PM EST Office Visit Pulmonology - [place] [address] [place] [address] Melissa Hector MD [address] [place] [address] 12/30/2025 1:00 PM EDT Appointment Radiology Department - [address] [address] Health Maintenance Due Date Last Done Comments COVID-19 Vaccine ( season) 2025 07/21/2024, 07/21/2024, 07/12/2023, Additional history exists Influenza Vaccine (#1) 2025 , 07/23/2023, 07/22/2023, Additional history exists Falls Risk Assessment 09/12/2025 09/12/2024 Medicare Annual Wellness Visit 09/12/2025 09/12/2024 Social Influencers of Health Screening 12/10/2025 12/10/2024 Breast Cancer Screening 12/25/2026 12/26/19 25, 12/13/2023, 12/11/2022, Additional history exists Cholesterol Screening [...] PT PT STG x 8 visits from [facility] on 01/12/2025 General Yes Jed Galarza, [...] 4/5 PT LTG x 8 visits from [facility] on 01/12/2025 General Yes Jed Galarza M, PT Note: [x] = completed goal [] [...] Routine 10/06/2024 11:05 AM EST Mixed hyperlipidemia DEPRESSION SCREENING Routine 11/28/2023 DXA BONE DENSITY [...] is recommended in 1 year. Mammo Location: [facility], [address] [place] [address], [id number], . -------- FINAL REPORT -------- Dictated By: Ignacia Man Dictated Date: 12/26/2024 10:34 ET Assigned Physician: Ignacia Man Reviewed and Electronically Signed By: Ignacia Man Signed Date: 12/26/2024 10:48 ET Workstation ID: [id number] Transcribed By: Self Edit Transcribed Date: 12/26/2024 [...] is recommended in 1 year. Mammo Location: [facility], [address] [place] [address], [address], . -------- FINAL REPORT -------- Dictated By: Ignacia Man Dictated Date: 12/26/2024 10:34 ET Assigned Physician: Ignacia Man Reviewed and Electronically Signed By: Ignacia Man Signed Date: 12/26/2024 10:48 ET Workstation ID: [id number] Transcribed By: Self Edit Transcribed Date: 12/26/2024 10:34 ET Shubham Chang MD IMG BI PROCEDURE S Final Result * (ABNORMAL) Lipid panel with reflex to direct LDL (10/06/2024 11:05 AM EST) Cholesterol 257(H) 0 - 200 mg/dL LAB CHEMISTRY METHOD 10/06/2024 5:25 PM [facility] Triglycerides 131 0 - 150 mg/dL LAB CHEMISTRY METHOD 10/06/2024 5:25 PM EST [facility] HDL 56 >=40 mg/dL LAB CHEMISTRY METHOD 10/06/2024 5:25 PM EST [facility] LDL Calculated 175(H) 0 - 100 mg/dL LAB CHEMISTRY METHOD 10/06/2024 5:25 PM [facility] VLDL Cholesterol Homero 26.2 mg/dL LAB CHEMISTRY METHOD 10/06/2024 5:25 PM [facility] Non HDL Chol. (LDL+VLDL) 201(H) <145 mg/dL LAB CHEMISTRY METHOD 10/06/2024 5:25 PM [facility] Chol/HDL Ratio 4.6(H) 0.0 - 4.4 LAB CHEMISTRY METHOD 10/06/2024 5:25 PM [facility] Blood Venous blood specimen / Unknown Venipuncture / Unknown 10/06/2024 11:05 AM EST 10/06/2024 11:05 AM EST us Shubham Chang MD LAB BLOOD ORDERA BLES Final Result [facility] [address] [place] [address], * Depression Screening (11/28/2023) [facility] Depression Screening Abstracted Historical Provider HEALTH MAINTENANCE Final [...] classified as having normal bone density. The [facility] Department of Internal Medicine recommends using National [...] classified as having normal bone density. The [facility] Department of Internal Medicine recommendsusing National Osteoporosis [...] over-estimation of fracture risk by FRAX. Meera OSULLIVAN DXA PROCEDURES Final Resu lt * Hepatitis C Screening (09/14/2020) [facility] Hepatitis C Screening Abstracted Historical Provider HEALTH MAINTENANCE Final Result * Colonoscopy (11/11/2019) [facility] Colonoscopy No Interpretation , Abstracted Anatomical Region Laterality Modality Other Historical Provider HEALTH MAINTENANCE Final Result from Last 3 Months or Most Recently Relevant to Health Maintenance Insurance [employer] MEDICARE Advance Directives Documents on File Type Date Recorded Patient Sales Stock Associate Expl anation Health Care Decision (hx) 09/12/2023 SHRAVAN ORTIZ DIRECTIVE Care Teams Tunnel Heading Supervisor Relationship Specialty Start Date End Date Shubham Chang MD [address] [place] [address] PCP - General 04/17/23
--- OUTSIDE RECORDS SUMMARY | 2025-06-30 18:22 | XMS_ITS | Clinical Summary ---
Author Organization [employer] Address [address] [facility] [facility] [place] [address] Care Team Providers Care Infant Childcare Provider Name Role Phone Unavailable Primary Care Provider [...] 1974 Dental Oral Exam 10/26/2024 04/24/2024, 09/26/2023 Dental X-Ray: Bitewings 04/25/2025 04/24/2024, 10/06 Dental Prophylaxis 04/27/2025 10/27/2024, 0 04/24/2024, 09/26/2023, Additional history exists COVID-19 Vaccine ( season) 2025 07/21/2024, 07/12/2023, 07/05/2022, Additional history exists Influenza Vaccine (#1) 2025 [...] [place] - [facility] (MEDICAID) DENTAL [facility] * Guarantor: Leonor Chua Account Type Relation to Patient Date of Phone Billing Address Personal/Family Self [place], [place] * Guarantor: Leonor hCua Account Type Relation to Patient Date of Phone Billing Address Personal/Family Self [facility] [place] * Guarantor: Leonor Chua Account Type Relation to Patient Date of Phone Billing Address Personal/Family Self [place], [place] * Guarantor: Leonor Chua Account Type Relation to Patient Date of Phone Billing Address Personal/Family Self [place], [place]
--- OUTSIDE RECORDS SUMMARY | 2025-06-30 18:22 | XMS_ITS | Clinical Summary ---
Author Organization [facility] Address [address] [place] [address] Care Team Providers Care Supervisor Paint Department Name Role Phone Clara Meza DO Primary [...] age to complete this topic Care Teams Supervisor Paint Department Relationship Specialty Start Date End Date Clara Meza DO PCP - General Video Machines Mechanic 09/23/20
--- OUTSIDE RECORDS SUMMARY | 2025-06-30 18:22 | XMS_ITS | Encounter Summary ---
Author Organization [facility] Address [address] [place] [address] Phone Care Team Providers Care Manager Cosmetic Name Role Phone Romario Bhatia MD Primary Care Provider +1- [phone] Encounter Details Date Type Department Care Team [...] on filedocumented in this encounter Care Teams Manager Cosmetic Relationship Specialty Start Date End Date Romario Bhatia MD PCP - General 08/15/17 documented as of this encounter Additional Source Comments The information contained in this document represents components of the legal health record. It is not the complete legal health record.[facility]
--- OUTSIDE RECORDS SUMMARY | 2025-06-30 18:22 | XMS_ITS | Encounter Summary ---
Author Organization [employer] Address [address] [facility] [address] [place] [address] Care Team Providers Care Associate Oracle Retail Name Role Phone Unavailable Primary Care Provider Unavailabl e Encounter Details Date Type Department Care Team (Latest Contact Info) Description 10/22/2020 Abstract [facility] CONVERSIONS Dental, Provider, DDS Social History Tobacco Use Types Packs/Day Years Used Date Smoking Tobacco: Never Assessed Comments Unknown Sex and Gender Information Value Date Recorded Sex Assigned at Female 07/24/2022 10:37 AM EDT Legal Sex Female 10:37 AM EDT Gender Identity Female 07/24/2022 10:37 AM EDT Sexual Orientation Straight 07/24/2022 10 :37 AM EDT documented as of this encounter Plan of Treatment Not on file documented as of this encounter Visit Diagnoses Not on filedocumented in this encounter
--- OUTSIDE RECORDS SUMMARY | 2025-06-30 18:23 | XMS_ITS | Clinical Summary ---
Author Organization [facility] Address [address] [place] [address] Phone Care Team Providers Care Manager Lean Name Role Phone Romario Bhatia MD Primary Care Provider [phone]- [phone] Allergies Active Allergy Reactions Criticality Noted Date Comments Erythromycin Hives 10/02/2017 Other 10/02/2017 cold Medications metoprolol succinate (TOPROL-XL) 25 MG 24 hr tablet Take 25 mg by mouth daily. Active escitalopram oxalate (LEXAPRO) 10 MG tablet Take 10 mg by mouth daily. 1/2 tab QD Active ALPRAZolam (XANAX) 0.25 MG tablet Take 0.25 mg by mouth nightly as needed for sleep. Active CALCIUM CARBONATE (CALCIUM 500 ORAL) Take by mouth. Activ e CALCIUM CARB/MAG CARB/FOLIC AC (MAGNEBIND 400 ORAL) Take 500 mg by mouth. Active multivitamins capsule Take 1 capsule by mouth daily. Active cyclobenzaprine (FLEXERIL) 5 MG tablet Take 5 mg by mouth 3 (three) times a day as needed for muscle spasms. Active montelukast (SINGULAIR) 10 mg tablet Take 10 mg by mouth nightly. Active cholecalciferol (VITAMIN D3) 1,000 unit tablet Take 1,000 Units by mouth daily. Active eletriptan (RELPAX) 40 MG tablet Take 40 mg by mouth as needed. may repeat in 2 hours if necessary Active acetaminophen (TYLENOL) 500 MG tablet Take 500 mg by mouth 3 (three) times a day. Active Active Problems Problem Noted Date Diagnosed Date Left hip pain 10/02/2017 SVT (supraventricular tachycardia) Family History * Patient is adopted Medical History Relation Comments No Known Problems Brother No Known Problems Father No Known Problems Maternal Aunt No Known Problems Maternal Grandfather No Known Problems Maternal Grandmother No Known Problems Maternal Uncle No Known Problems Mother No Known Problems Paternal Aunt No Known Problems Paternal Grandfather No Known Problems Paternal Grandmother No Known Problems Paternal Uncle No Known Problems Sister Cancer Neg Hx Clotting disorder Neg Hx Collagen disease Neg Hx Depression Neg Hx Diabetes Neg Hx Dislocations Neg Hx Gout Neg Hx Infl. arthritis Neg Hx Osteoporosis Neg Hx Scoliosis Neg Hx Relation Status Comments Brother Father Maternal Aunt Maternal Grandfather Maternal Grandmother Maternal Uncle Mother Paternal Aunt Paternal Grandfather Paternal Grandmother Paternal Uncle Sister Social History Tobacco Use Types Packs/Day Years Used Date Smoking Tobacco: Never Smokeless Tobacco: Never Alcohol Use Standard Drinks/Week Comments Yes 0 (1 standard drink = 0.6 oz pur e alcohol) social Education Answer Date Recorded Are you interested in more education? Not on delicia e 01/19/2023 Are you concerned about learning? Not on file 01/19/2023 No 01/19/2023 No 01/19/2023 Digital Access Answer Date Recorded No 02/17/2023 No 02/17/2023 No 02/17/2023 Reliable internet access at home? Not on file 02/17/2023 Device with a working camera? Not on file Comments Unknown Sex and Gender Information Value Date Recorded Sex Assigned at Not on file Legal Sex Female 3:28 PM EST Gender Identity Not on file Sexual Orientation Not on file Last Filed Vital Signs Vital Sign Reading Time Taken Comments Blood Pressure 148/83 10/02/2017 3:15 PM EST Pulse 91 10/02/2017 3:15 PM EST Temperature - - Respiratory Rate - - Oxygen Saturation - - Inhaled Oxygen Concentration - - Weight 82.6 kg (182 lb) 10/02/2017 3:15 PM EST Height 149.9 cm (4' 11 ) 10/02/2017 3:15 PM EST Body Mass Index 36.76 10/02/2017 3:15 PM EST Plan of Treatment Health Maintenance Due Date Last Done Comments Adult Td,Tdap Booster 1955 LIPID PANEL 1956 DEPRESSION SCREENING 1968 HEPATITIS C SCREENING 1974 SMOKING STATUS SCREENING (Once After 26 Yrs) 1982 MAMMOGRAM 1996 COLOGUARD 2001 COLONOSCOPY 2001 COLORECTAL CANCER SCREENING 2001 FIT TEST 2001 FOBT 2001 SIGMOIDOSCOPY 2001 VIRTUAL COLONOSCOPY 2001 PNEUMOCOCCAL VACCINES (50+ years) (1 of 1 - PCV) 2006 OSTEOPOROSIS SCREENING INITIAL (ONE-TIME) 2021 INFLUENZA VACCINE (#1) 2025 0, 05/23/2019, 07/09/2018, Additional history exists COVID-19 VACCINE (2 - 2024- season) 2025 12/07/2020 RSV VACCINE (1 - 1-dose 75+ series) 2031 ZOSTER VACCINES Completed 08/13/2020, 10/08/2019 HEPATITIS A VACCINES Aged Out No long er eligible based on patient's age to complete this topic HIB VACCINES Aged Out No longer eligi ble based on patient's age to complete this topic MENINGOCOCCAL VACCINES (ACWY) Aged Out No longer eligible based on patient's age to complete this topic MENINGOCOCCAL VACCINES (B) Aged Out N o longer eligible based on patient's age to complete this topic Medical Devices Not on file Insurance [facility] Care Teams Manager Lean Relationship Specialty Start Date End Date Romario Bhatai MD PCP - General 08/15/17 Additional Source Comments The information contained in this document represents components of the legal health record. It is not the complete legal health record.[facility]
== END 2025-06-30 15:10 | disposition home or self-care (01) ==
LOC: HO.NEURO 15:09
PROVIDERS: Visit Provider Psychiatry & Neurology Neurology
DX: R20.0 Anesthesia of skin (principal); M25.512 Pain in left shoulder
CPT/HCPCS: 95886; 95910

== ENCOUNTER → 2025-06-30 15:20 | Outpatient (BNV) | payer MEDICARE, SELFPAY | PROVIDERS: Visit Provider Psychiatry & Neurology Neurology | DX: M54.12 Radiculopathy, cervical region (principal) | CPT/HCPCS: 95886; 95910 ==

== ENCOUNTER → 2025-09-10 14:38 | Outpatient (REF) | payer MEDICARE, SELFPAY ==
--- OUTSIDE RECORDS SUMMARY | 2025-09-10 18:47 | XMS_ITS | Clinical Summary ---
Author Organization [employer] Address [address] [place] [address] [address] [place] [address] Care Team Providers Care Freedom Of Information Officer Name Role Phone Unavailable Primary Care Provider [...] Mass Index - - Plan of Treatment Upcoming Encounters Date Type Department Care Team (Late st Contact Info) Description 10/06/2025 1:30 PM EST Office Visit [facility] ADULT DENTAL [address] [place] [address] Shay Steve Health Maintenance Due Date Last Done Comments [...] Additional history exists Tobacco Screening 10/27/2025 10/27/2024 COVID-19 Vaccine ( season) 2026 07/17/2025, 07/21/2024, 07/12/2023, Additional history exists Mammogram 12/25/2026 12/25/2024, 12/25/2024 Dental X-Ray: Full [...] Most Recently Relevant to Health Maintenance Insurance [place], [place] [facility]
--- OUTSIDE RECORDS SUMMARY | 2025-09-10 18:47 | XMS_ITS | Encounter Summary ---
Author Organization [facility] Address [address] [place] [address] Phone Care Team Providers Care Preschool Paraprofessional Name Role Phone Romario Bhatia MD Primary Care Provider [phone]- [phone] Encounter Details Date Type Department Care Team [...] Lab (07/24/2017) us Historical Provider LAB BLOOD BKR ORDERABLES Final Result documented in this encounter Visit Diagnoses Not on filedocumented in this encounter Care Teams Preschool Paraprofessional Relationship Specialty Start Date End Date Romario Bhatia MD PCP - General 08/15/17 documented as of this encounter Additional Source Comments The information contained in this document represents components of the legal health record. It is not the complete legal health record.[facility]
--- OUTSIDE RECORDS SUMMARY | 2025-09-10 18:47 | XMS_ITS | Clinical Summary ---
Author Organization [facility] [employer] Prior to 02/21/25 Address [address] [place] [address] Care Team Providers Care Midwife Practitioner Name Role Phone Clara Meza DO Primary [...] age to complete this topic Care Teams Midwife Practitioner Relationship Specialty Start Date End Date Clara Meza DO PCP - General Talent Acquisition Partner 09/23/20
--- OUTSIDE RECORDS SUMMARY | 2025-09-10 18:47 | XMS_ITS | Encounter Summary ---
Author Organization [employer] Address [address] [facility] [address] [place] [address] Care Team Providers Care Cook Fry Name Role Phone Unavailable Primary Care Provider Unavailabl e Encounter Details Date Type Department Care Team (Latest Contact Info) Description 10/22/2020 Abstract [facility] CONVERSIONS Dental, Provider, DDS Social History [...] as of this encounter Plan of Treatment Upcoming Encounters Date Type Department Care Team (Late st Contact Info) Description 10/06/2025 1:30 PM EST Office Visit [facility] ADULT DENTAL [address] [place] [address] Shay Steve documented as of this encounter Visit Diagnoses Not on filedocumented in this encounter
--- OUTSIDE RECORDS SUMMARY | 2025-09-10 18:47 | XMS_ITS | Clinical Summary ---
Author Organization [address] Address [address] [place] [address] Phone Care Team Providers Care Traffic Control Signaler Name Role Phone Shubham Chang MD Primary [...] AFTER USE 10.2 each 11 024 Active tiotropium (Spiriva Respimat) 2.5 mcg/actuation inhalation spray Inhale 2 puffs by mouth 1 (one) time each day. 1 each 025 2025 Active naproxen (NAPROSYN) 500 mg tablet TAKE [...] EACH DAY. 90 tablet 1 025 Active buPROPion XL (WELLBUTRIN XL) 150 mg 24 hr tabletIndications:S easonal affective disorder (CMS/HCC V24) TAKE 1 TABLET BY MOUTH EVERY DAY IN THE MORNING DO NOT CRUSH,CHEW OR SPLIT 90 tablet 1 025 Active metoprolol succinate (TOPROL-XL) 25 mg 24 hr tabletIndications:P aroxysmal supraventricular tachycardia (CMS/HCC V24) TAKE 1 TABLET BY MOUTH 1 TIME EACH DAY. DO NOT CRUSH OR CHEW. 90 tablet 1 025 Active buPROPion XL (WELLBUTRIN XL) 150 mg 24 hr tabletIndications:S easonal affective disorder ([facility] V24) Take 1 tablet (150 mg total) by mouth 1 (one) time each day in the morning. Do not crush, chew, or split. 90 each 1 025 2024 Discontinued metoprolol succinate (TOPROL-XL) 25 mg 24 hr tabletIndications:P aroxysmal supraventricular tachycardia ([facility] V24) TAKE 1 TABLET BY MOUTH 1 TIME EACH DAY. DO NOT CRUSH OR CHEW. 90 tablet 1 025 2024 Discontinued Active [...] disease), lumbar 07/25/20 17 Paroxysmal supraventricular tachycardia 07/24/20 17 Overview (08/08/2024): Last Assessment & Plan: Patient [...] Diagnosed Date Resolved Date Cough 09/26/2017 09/12/2024 Immunizations Immunization Administration Dates Next Due COVID-19 [...] TONSILLECTOMY ADENOIDECTOMY, BILATERAL MYRINGOTOMY AND TUBES PROCEDURE: [place] TONSILLECTOMY & ADENOIDECTOMY <AGE 12 Medical History [...] care for your loved ones. For example, child guidance counselor or elderly care for an older adult? [...] Care Team (Late st Contact Info) Description 09/23/2025 10:45 AM EST Office Visit Adult Medicine [address] [phone] Meera Aly PA [address] [place] [address] 10/09/2025 2:30 PM EST Office Visit Pulmonology - [place] [address] [facility] [address] [place] [phone] Melissa Hector MD [address] [place] [phone] 12/30/2025 1:00 PM EDT Appointment Radiology Department - [address] [phone] Health Maintenance Due Date Last Done Comments Drug Screen 1955 Non-Opioid Controlled Substance Agreement 1955 Influenza Vaccine (#1) 2025 , 07/23/2023, 07/22/2023, Additional history exists Falls Risk Assessment 09/12/2025 09/12/2024 Medicare Annual Wellness Visit 09/12/2025 09/12/2024 Social Influencers of Health Screening 12/10/2025 12/10/2024 COVID-19 Vaccine ( season) 2026 07/17/2025, 07/21/2024, 07/21/2024, Additional history exists Breast Cancer Screening 12/25/2026 12/26/19, 12/13/2023, 12/11/2022, [...] Completed 08/29/2023 Depression Screening Completed 12/10/2024, 11/28/19 HIB Vaccines Aged Out No longer eligi [...] PT STG x 8 visits from [facility] [place] on 01/12/2025 General Yes Jed Galarza PT Note: [x] = completed goal [] = NOT completed goal Pt will report a 2/10 average pain level decrase, Pt will improve C rotation to 60 deg to right in order to aid in looking over shoulder, Pt will improve deep neck flexor strength to 15 seconds, Pt will improve shoulder ER strength to 4/5 PT LTG x 8 visits from [facility] [place] on 01/12/2025 General Yes Jed Galarza, PT [...] is recommended in 1 year. Mammo Location: [facility], [address] [place] [address], [phone], . -------- FINAL REPORT -------- Dictated By: Ignacia Man Dictated Date: 12/26/2024 10:34 ET Assigned Physician: Ignacia Man Reviewed and Electronically Signed By: Ignacia Man Signed Date: 12/26/2024 10:48 ET Workstation ID: [id number] Transcribed By: Self Edit Transcribed Date: 12/26/2024 [...] is recommended in 1 year. Mammo Location: [facility], [address] [place] [address], [phone], . -------- FINAL REPORT -------- Dictated By: Ignacia Man Dictated Date: 12/26/2024 10:34 ET Assigned Physician: Ignacia Man Reviewed and Electronically Signed By: Ignacia Man Signed Date: 12/26/2024 10:48 ET Workstation ID: [id number] Transcribed By: Self Edit Transcribed Date: 12/26/2024 10:34 ET Shubham Chang MD IM BI PROCEDURE S Final Result * (ABNORMAL) Lipid panel with reflex to direct LDL (10/06/2024 11:05 AM EST) Cholesterol 257(H) 0 - 200 mg/dL LAB CHEMISTRY METHOD 10/06/2024 5:25 PM [facility] Triglycerides 131 0 - 150 mg/dL LAB CHEMISTRY METHOD 10/06/2024 5:25 PM EST [facility] HDL 56 >=40 mg/dL LAB CHEMISTRY METHOD 10/06/2024 5:25 PM [facility] LDL Calculated 175(H) 0 - 100 mg/dL LAB CHEMISTRY METHOD 10/06/2024 5:25 PM [facility] VLDL Cholesterol Homero 26.2 mg/dL LAB CHEMISTRY METHOD 10/06/2024 5:25 PM EST [facility] Non HDL Chol. (LDL+VLDL) 201(H) <145 mg/dL LAB CHEMISTRY METHOD 10/06/2024 5:25 PM EST [facility] Chol/HDL Ratio 4.6(H) 0.0 - 4.4 LAB CHEMISTRY METHOD 10/06/2024 5:25 PM EST [facility] Blood Venous blood specimen / Unknown Venipuncture / Unknown 10/06/2024 11:05 AM EST 10/06/2024 11:05 AM EST Shubham Chang MD LAB BLOOD ORDERA BLES Final Result [facility] [address] [place] [address], [place] [phone] * Depression Screening (11/28/2023) [facility] Depression Screening Abstracted Historical Provider HEALTH [...] classified as having normal bone density. The [facility] Department of Internal Medicine recommends using [...] classified as having normal bone density. The [facility] Department of Internal Medicine recommendsusing National [...] or over-estimation of fracture risk by FRAX. Result [facility] Meera SULLIVAN IMG DXA PROCEDURES Final Resu lt * Hepatitis C Screening (09/14/2020) Hepatitis C Screening Abstracted Result [facility] Historical Provider HEALTH MAINTENANCE Final Result * Colonoscopy (11/11/2019) Colonoscopy No Interpretation , Abstracted Anatomical Region Laterality Modality Other Result [facility] Historical Provider HEALTH MAINTENANCE Final Result from Last 3 Months or Most Recently Relevant to Health Maintenance Insurance [employer] MEDICARE Advance Directives Documents on File Type Date Recorded Patient Analysis Engineer Expl anation Health Care Decision (hx) 09/12/2023 SHRAVAN ORTIZ DIRECTIVE Care Teams Traffic Control Signaler Relationship Specialty Start Date End Date Shubham Chang MD [address] [place] [phone] PCP - General 04/17/23
--- OUTSIDE RECORDS SUMMARY | 2025-09-10 18:47 | XMS_ITS | Clinical Summary ---
Author Organization [facility] Address [address] [facility] [address] [place] [address] Phone Care Team Providers Care Executive Housekeeper Name Role Phone Romario Bhatia MD Primary Care Provider +1- [phone] Allergies Active Allergy Reactions Criticality Noted Date [...] this topic Medical Devices Not on file Care Teams Executive Housekeeper Relationship Specialty Start Date End Date Romario Bhatia MD PCP - General 08/15/17 Additional Source Comments The information contained in this document represents components of the legal health record. It is not the complete legal health record.[facility]
== END ==
LOC: HO.SL 14:38
PROVIDERS: PCP Family Medicine; Visit Provider Psychiatry & Neurology Neurology
DX: G47.33 Obstructive sleep apnea (adult) (pediatric) (principal); R06.83 Snoring; G47.10 Hypersomnia, unspecified; R40.0 Somnolence
CPT/HCPCS: 95806

== ENCOUNTER → 2025-09-12 14:47 | Outpatient (BNV) | payer MEDICARE, SELFPAY | PROVIDERS: PCP Family Medicine; Visit Provider Psychiatry & Neurology Neurology | DX: G47.33 Obstructive sleep apnea (adult) (pediatric) (principal) | CPT/HCPCS: 95806 ==